=== PATIENT | female | born 1950 | race Asian ===

== ENCOUNTER → 2018-06-08 | Outpatient (CLI) | payer MEDICARE ==
[~2018-06-08] MED LIST: BARIUM SULFATE 450ML ORAL SUSP ONE; IOHEXOL-300 100 ML BOTTLE ONE
== END | disposition home or self-care (01) ==
LOC: RAD 07:43
PROVIDERS: ATTEND Internal Medicine Gastroenterology
DX: R63.4 Abnormal weight loss (principal); R11.2 Nausea with vomiting, unspecified; R10.9 Unspecified abdominal pain
CPT/HCPCS: 71046; 74177; Q9967